=== PATIENT | male | born 1950 | race Caucasian/White ===

== ENCOUNTER → 2017-01-21 | Outpatient (CLI) | payer MEDICARE, OTHER | LOC: OPSV 11:27 | DX: M06.00 Rheumatoid arthritis without rheumatoid factor, unspecified site (principal) | CPT/HCPCS: 96413; 96415; J1745 ==

== ENCOUNTER → 2017-02-25 | Outpatient (CLI) | payer MEDICARE, OTHER | LOC: RAD 11:29 | DX: M25.551 Pain in right hip (principal) | CPT/HCPCS: 73502 ==

== ENCOUNTER → 2017-03-18 | Outpatient (CLI) | payer MEDICARE, OTHER ==
[~2017-03-18] VITALS: Ht 177.8 cm; Wt 90.7 kg
== END ==
LOC: OPSV 11:54
DX: M06.9 Rheumatoid arthritis, unspecified (principal)
CPT/HCPCS: 96413; 96415; J1745

== ENCOUNTER → 2017-05-13 | Outpatient (CLI) | payer MEDICARE, OTHER ==
[~2017-05-13] VITALS: Ht 177.8 cm; Wt 90.7 kg
== END ==
LOC: OPSV 09:52
DX: M06.9 Rheumatoid arthritis, unspecified (principal)
CPT/HCPCS: 96413; 96415; J1745

== ENCOUNTER → 2020-12-19 | Outpatient (CLI) | payer MEDICARE ==
[~2020-12-19] VITALS: Ht 177.8 cm; Wt 79.4 kg
[~2020-12-19] MED LIST: BALANCED B-CO400 MCG PO; FEOSOL45 MG PO; FLEXERIL 10 MG10 MG PO; LEVOTHYROXINE88 MCG PO; METHOTREXATE T2.5 MG PO; NEURONTIN 300300 MG PO; OXYCONTIN15 MG PO; PROTONIX40 MG PO; REMICADE I100 MG/VIA IV; VITAMIN B-121000 MC3 PO; VITAMIN C 500500 MG PO; VITAMIN D31000 UNI1 PO
[2020-12-19 11:20] LABS: HEMOGLOBIN 13.6 gm/dl (14.0-17.5); RED BLOOD COUNT 3.99 M/UL (4.20-5.50); WHITE BLOOD COUNT 7.3 K/UL (4.5-11.0)
[2020-12-19 11:44] LABS: BUN/CREATININE RATIO 19 (0-10)
== END ==
LOC: OPSV 10:58
PROVIDERS: Internal Medicine Rheumatology
DX: M06.9 Rheumatoid arthritis, unspecified (principal)
CPT/HCPCS: 36415; 80053; 85027; 96365; 96366; 96413; 96415; J1745; J7050

== ENCOUNTER → 2021-02-13 | Outpatient (CLI) | payer MEDICARE ==
[~2021-02-13] VITALS: Ht 177.8 cm; Wt 81.6 kg
== END ==
LOC: OPSV 10:57
DX: M06.00 Rheumatoid arthritis without rheumatoid factor, unspecified site (principal)
CPT/HCPCS: 96365; 96366; 96413; 96415; J1745; J7050

== ENCOUNTER → 2021-02-21 | Outpatient (CLI) | payer MEDICARE | LOC: RT 13:25 | DX: Z79.891 Long term (current) use of opiate analgesic (principal) | CPT/HCPCS: 93005 ==

== ENCOUNTER → 2021-04-10 | Outpatient (CLI) | payer MEDICARE | LOC: OPSV 11:00 | DX: M06.9 Rheumatoid arthritis, unspecified (principal) | CPT/HCPCS: 96413; 96415; J1745; J7030 ==

== ENCOUNTER → 2021-06-05 | Outpatient (CLI) | payer MEDICARE | LOC: OPSV 10:59 | DX: M06.9 Rheumatoid arthritis, unspecified (principal) | CPT/HCPCS: 96413; 96415; J1745; J7030 ==

== ENCOUNTER → 2021-09-23 | Outpatient (CLI) | payer MEDICARE | LOC: RAD 13:04 | DX: M25.562 Pain in left knee (principal); M25.561 Pain in right knee; J18.9 Pneumonia, unspecified organism | CPT/HCPCS: 71046; 73564 ==

== ENCOUNTER → 2021-10-07 | Outpatient (CLI) | payer MEDICARE | LOC: KOH-I 15:48 | DX: J84.9 Interstitial pulmonary disease, unspecified (principal); R91.8 Other nonspecific abnormal finding of lung field | CPT/HCPCS: 71250 ==

== ENCOUNTER → 2022-02-14 | Outpatient (CLI) | payer MEDICARE | LOC: RAD 14:33 | DX: J06.9 Acute upper respiratory infection, unspecified (principal) | CPT/HCPCS: 71046 ==

== ENCOUNTER → 2022-03-17 | Outpatient (CLI) | payer MEDICARE | LOC: RAD 15:33 | DX: J18.9 Pneumonia, unspecified organism (principal) | CPT/HCPCS: 71046 ==

== ENCOUNTER → 2022-04-08 | Outpatient (CLI) | payer MEDICARE | LOC: KOH-I 10:50 | DX: E04.1 Nontoxic single thyroid nodule (principal) | CPT/HCPCS: 76536 ==